=== PATIENT | male | born 1975 | race Caucasian/White ===

== ENCOUNTER 2023-01-08 07:30 | Outpatient (CLI) | payer OTHER, SELFPAY ==
--- OUTSIDE RECORDS SUMMARY | 2023-01-09 00:03 | XMS_ITS | Continuity of Care Document ---
Author Name Unknown Organization Z [facility] Address [address] [place] [address] Phone Care Team Providers Care Fruit Grader Name Role Phone Unavailable Unavailable Unavailable Allergies, Adverse Reactions, Alerts Substance Reaction Status Criticality No Known allergies Medications Medication Instructions Dosage Effective Dates (start - stop) Status Comments CELEBREX (unknown strength) Not Available - Active NAPROXEN (unknown strength) Not Available - Active HYDROCODONE -ACETAMINOPHEN (unknown strength) Not Available - Active Procedures Procedure Date Office/Outpatient Visit,[facility] 2012 Special Serv Nec, Procedor Report Office/Outpatient Visit,[facility] 2011 Special Serv Nec, Procedor Report Advance Directives Directive Yes / No Effective Date File Name No Information Encounters Encounter Description Practice Location Reason(s) For Visit Diagnoses Date Provider Providers Copied on Encounter Z [facility], [address], [address], tel:[phone] [email or web address] No Information 3 No Information Office/[place] Visit[place] [facility] [place] [facility], [address], [address], tel:[phone] [email or web address] No Information 3 Mehbod Amir. [facility], [address] [place] [address], [id number], [place]. tel:[phone] Referring Provider: Santosh Fritz, [address], [address]. tel:[phone] Office/Outpa tient Visit,[facility], [facility], [address], [place], [address], [place] tel:[phone] [facility] No Information 2 Rubén Ríos. [facility], [address], [place], [id number], . tel:[phone] Z [facility], [address], [place], [facility], tel:[phone] [facility] [place] 2 Kiana Miller. [address], [place], [id number], [place]. tel:[phone] Family History Family Member Type Diagnosis Age At Onset No Information Payers Payer name Insurance type Covered constitution party ID Authorfranklyn araiza(s) [employer] [facility] [id number] Social History Type Description Quantity Date Captured Comments Sex Male Smoking Status No Information Chief Complaint And Reason For Visit No Information Reason For Referral Reason For Referral No Information History Of Present Illness Encounter Date Complaint History Of Prese nt Illness No Information Functional Status Date Functional Assessmen t No Information Instructions Date Instruction Additional Infor mation No Information Assessments Type Assessment Date No Information Patient Care Teams Name Effective Dates (start - stop) Status Members No Information
== END 2023-01-08 07:31 | disposition home or self-care (01) ==
LOC: NFLDREF 01-09 00:01
PROVIDERS: PCP Family Medicine; Referring Provider Family Medicine; Visit Provider Family Medicine
DX: Z13.1 Encounter for screening for diabetes mellitus (principal); Z13.6 Encounter for screening for cardiovascular disorders
CPT/HCPCS: 80061; 82947

== ENCOUNTER 2023-07-22 09:08 | Outpatient (CLI) | payer OTHER, SELFPAY ==
--- OUTSIDE RECORDS SUMMARY | 2023-07-22 09:12 | XMS_ITS | Continuity of Care Document ---
Author Name Unknown Organization Z [facility] Address [address] [place] [address] Phone Care Team Providers Care Department Head [employer] Name Role Phone Unavailable Unavailable Unavailable Allergies, Adverse Reactions, Alerts Substance Reaction Status Criticality No Known allergies Medications Medication Instructions Dosage Effective Dates (start - stop) Status Comments CELEBREX (unknown strength) Not Available - Active NAPROXEN (unknown strength) Not Available - Active HYDROCODONE -ACETAMINOPHEN (unknown strength) Not Available - Active Procedures Procedure Date Office/Outpatient Visit,[facility] 2012 Special Serv Nec, Procedor Report Office/Outpatient Visit,[facility] 2011 Special Serv Nec, Procedor Report Advance Directives Directive Yes / No Effective Date File Name No Information Encounters Encounter Description Practice Location Reason(s) For Visit Diagnoses Date Provider Providers Copied on Encounter Z [facility], [address] [place] [address], [address], tel:[phone] [place] No Information 3 No Information Office/Outpa tient Visit,Est, Mod Z [facility], [address] [place] [address], [address], [place] tel:[phone] [place] No Information 3 Mehbod Amir. [facility], [address] [address], [place], [id number], [place]. tel:[phone] Referring Provider: Santosh Snow, [facility], [place], [address]. tel:[phone] Office/Outpa [facility]ient Visit,[facility], [facility], [address] [place], [place] [address], [place], [address], tel:[phone] [facility] No Information 2 Rubén Ríos. [facility], [address], [place], [id number], . tel:[phone] Ally [facility], [address] [address], [place], [facility], tel:[phone] [facility] [place] 2 Kiana Miller. [address] [address], [place], [id number], [place]. tel:[phone] Family History Family Member Type Diagnosis Age At Onset No Information Payers Payer name Insurance type Covered alliance party ID Bk fongricardo(s) [employer] Co [facility] [id number] Social History Type Description Quantity Date Captured [...]
--- OUTSIDE RECORDS SUMMARY | 2023-07-22 09:12 | XMS_ITS | Clinical Summary ---
Author Name Unknown Organization [facility] Address [place], [place] [address] Care Team Providers Care Mortar Worker Name Role Phone Pcp, No Primary Care Provider Unavailabl e Allergies No known active allergies Medications No known medications Active Problems Problem Noted Date Diagnosed Date Adjustment disorder with depressed mood 09/03/19 13 Displacement of lumbar inter vertebral disc without myelopathy 01/05/2012 Lumbar radiculopathy 01/05/2012 Immunizations Name Administration Dates Next Due Hepatitis B (Adult) 06/24/1999 Influenza, IIV4 04/01/2016 MMR 03/09/1995 Td (Age >=7 Years) 03/18/2005 Tdap 10/21/2012 Family History Medical History Relation Name Comments Heart Disease Father aortic dissect ion Hypertension Father Heart Disease Maternal Grandfather Stroke Maternal Grandfather Diabetes Maternal Grandmother Hypertension Paternal Grandfather Hypertension Paternal Grandmother Relation Name Status Comments Father Maternal Grandfather Maternal Grandmother Paternal Grandfather Paternal Grandmother Social History Tobacco Use Types Packs/Day Years Used Date Smoking Tobacco: Every Day Cigarettes 1 10 Smokeless Tobacco: Never Tobacco Cessation:Ready to Q uit: No; Counseling Given: Yes Comments:advised to quit Alcohol Use Standard Drinks/Week Comments Yes 0 (1 standard drink = 0.6 oz pur e alcohol) 2-3 beers a day Sex and Gender Information Value Date Recorded Sex Assigned at Not on file Gender Identity Not on file Sexual Orientation Not on file Obstetrics History Last Filed Vital Signs Vital Sign Reading Time Taken Comments Blood Pressure 122/80 04/01/2016 4:53 PM CDT Pulse 78 04/01/2016 4:53 PM CDT Temperature 36.9 ??C (98.5 ??F) 03/03/2013 1:07 PM CD T Respiratory Rate 20 10/21/2012 6:31 PM CDT Oxygen Saturation 100% 03/03/2013 1:07 PM CDT Inhaled Oxygen Concentration - - Weight 73.9 kg (163 lb) 04/01/2016 4:53 PM CDT Height 176.5 cm (5' 9.5) 04/01/2016 4:53 PM CDT Body Mass Index 23.73 04/01/2016 4:53 PM CDT Plan of Treatment Health Maintenance Due Date Last Done Comments COVID-19 vaccine series (#1) 03/12/1978 Hepatitis C screening for ag e 18-79 09/11/1995 BMI (ht and wt on same day) for age 18+ 04/01/2017 04/01/2016 Depression screening for age 12+ 04/01/2017 04/01/2016 Colonoscopy through age 75 2022 Lipids for age 45-75 2022 04/01/2016 Tetanus booster 10/21/2022 10/21/2012, 10/21/2012, 03/18/2005 Influenza for age 9-49 02/06/2023 04/01/2016 Tdap Completed 10/21/2012 HIV for age 15-65 Completed 04/01/2016 Pneumococcal series for age 6-64 Aged Out No longer eligible b ased on patient's age to complete this topic Care Teams Mortar Worker Relationship Specialty Start Date End Date Pcp, No . PCP - General 12/12/16
== END 2023-07-22 09:09 | disposition home or self-care (01) ==
PROVIDERS: PCP Family Medicine; Visit Provider Family Medicine
DX: R51.9 Headache, unspecified (principal); Z13.228 Encounter for screening for other metabolic disorders
CPT/HCPCS: 80053; 86140